=== PATIENT | female | born 1980 | race Caucasian/White ===

== ENCOUNTER 2017-11-20 21:10 | Emergency (ER) | payer OTHER ==
[~2017-11-20] VITALS: Ht 165.1 cm; Wt 70.6 kg
[2017-11-20 21:30] VITALS: TEMP 36.9; Ht 165.1 cm; Wt 70.6 kg
[2017-11-20] MEDS ORDERED: OXYCODONE/ACETAMINOPHEN 5-325 TAB PO STA (21:54)
[2017-11-20] MEDS ORDERED: IBUPROFEN 600 MG TAB PO STA (21:54)
[2017-11-20] MEDS ORDERED: HYDROCODONE/ACETAMIN 5/325MG TAB PO STA (21:57)
--- NOTE | 2017-11-20 22:34 | DIAGNOSTIC IMAGING REPORT ---
RIGHT SHOULDER 3 VIEWS CLINICAL HISTORY: Right shoulder pain. FINDINGS: 3 views of the right shoulder are obtained. No prior studies are available for comparison at the time of dictation. The skeletal structures are well mineralized. No fracture or dislocation is seen. The glenohumeral and acromioclavicular joints are within normal limits. The overlying soft tissues are unremarkable. The visualized right lung parenchyma appears clear. IMPRESSION: Unremarkable radiographic assessment of the right shoulder. Electronically signed by: Jose Teixeira M.D. 11/20/2017 10:33 PM Dictated Date/Time: 11/20/2017 10:32 PM
--- NOTE | 2017-11-20 22:35 | DIAGNOSTIC IMAGING REPORT ---
RIGHT ELBOW 3 VIEWS CLINICAL HISTORY: 3 views of the right elbow are obtained. No prior studies are available for comparison at the time of dictation. The examination is degraded by inability to properly position the patient. There is a nondistracted fracture of the radial head with associated joint effusion. No additional fracture is seen. There is no dislocation. The overlying soft tissues are within normal limits. IMPRESSION: Nondistracted radial head fracture with associated joint effusion. Electronically signed by: Jose Teixeira M.D. 11/20/2017 10:34 PM Dictated Date/Time: 11/20/2017 10:33 PM
--- NOTE | 2017-11-20 22:57 | EMERGENCY ROOM VISIT NOTE ---
ED Visit Note First contact with patient: 21:41 CHIEF COMPLAINT: Elbow pain HISTORY OF PRESENT ILLNESS: This patient is a 36-year-old female that presents the emergency department complaining of right arm pain after falling off of a hover board landing on her right arm. She is having severe pain in the elbow. The pain shoots up proximally to the shoulder. She denies any numbness or tingling. She denies any pain in the fingers or wrist. She has not injured this elbow before. She is right-handed. She has not taken anything for pain. REVIEW OF SYSTEMS: A 6 system review of systems was completed with positives and pertinent negatives listed in the HPI. ALLERGIES: Toradol, Percocet MEDICATIONS: Reviewed PMH: Fibromyalgia, neuropathy SOCIAL HISTORY: Smokes a half pack cigarettes per day. Occasional EtOH use PHYSICAL EXAM: Vital Signs: Reviewed Nurse's notes, vital signs stable. GENERAL : 36-year-old female, in no acute distress, well-developed, well-nourished. SKIN: The skin was without rashes, erythema, edema, warmth, or bruising. Capillary reflex less than 3 seconds. MUSCULOSKELETAL: The patient is holding their elbow in a flexed position. There is tenderness over the medial and lateral aspect of the elbow. No tenderness over the olecranon process. Tenderness proceeds into the mid forearm. The patient is able to give a thumbs up, make an OK sign, and a #3 with their fingers. The patient was also tender over the proximal humerus. Range of motion of the shoulder is limited. Radial pulse 2+. NEURO: Patient was alert and oriented to person place and time. Normal sensation EMERGENCY DEPARTMENT COURSE: I examined the patient. She was given [place] and ibuprofen for pain Imaging was performed and reviewed Elbow x-ray IMPRESSION: Nondistracted radial head fracture with associated joint effusion. Electronically signed by: Jose Teixeira M.D. 11/20/2017 10:34 PM Dictated Date/Time: 11/20/2017 10:33 PM The status of this report is Signed. Draft = Not yet reviewed or approved by Radiologist. Signed = Reviewed and approved by Radiologist. Shoulder x-ray Patient Name: SHEKHAR BRAVO Unit Number: [id number] Dictated: 11/20/172231 Transcribed: 11/20/172231 EV Printed Date/Time: [~ rep prt dt]/[~ rep prt tm] [~ rep ct labl] - [~ rep ct ivnm] [facility] [place] [address] Dictated: 11/20/172231 Transcribed: 11/20/172231 EV Printed Date/Time: [~ rep prt dt]/[~ rep prt tm] [~ rep ct labl] - [~ rep ct ivnm] IMPRESSION: Unremarkable radiographic assessment of the right shoulder. Electronically signed by: Jose Teixeira M.D. 11/20/2017 10:33 PM Dictated Date/Time: 11/20/2017 10:32 PM The status of this report is Signed. Draft = Not yet reviewed or approved by Radiologist. Signed = Reviewed and approved by Radiologist. <AttendingPhy></AttendingPhy> <FamilyPhy>No Doctor, Assigned</FamilyPhy> < PrimaryPhy>No Doctor, Assigned</PrimaryPhy> <UnitNumber>[id number]</UnitNumber> <VisitNumber>[id number]</VisitNumber> <PatientName>SHEKHAR BRAVO</ PatientName> <DateOfBirth>1980</DateOfBirth> <Location>[facility]</Location> < ServiceDate>11/20/17</ServiceDate> <MNE>ESINDI</MNE> <OrderingPhy>Patsy Lucas PA-C</OrderingPhy> <OrderingPhyMNE>f rep ord dr larsen</OrderingPhyMNE> < DictatingPhyMNE>f rep dict dr larsen</DictatingPhyMNE> <CCListMNE>f rep ct mne</ CCListMNE> <AdmittingPhyMNE>f pt admit dr larsen</AdmittingPhyMNE> <AttendingPhyMNE >f pt attend dr larsen</AttendingPhyMNE> <ConsultingPhyMNE>f pt consult dr larsen</ConsultingPhyMNE> <FamilyPhyMNE>f pt fam dr larsen</FamilyPhyMNE> <OtherPhyMNE>f pt other dr larsen</OtherPhyMNE> < PrimaryPhyMNE>f pt prim care dr larsen</PrimaryPhyMNE> <ReferringPhyMNE>f pt referring dr larsen</ReferringPhyMNE> Neurovascular status was rechecked and intact. He was given a home pack of [place], and discharged in good condition DIAGNOSIS: Proximal radius fracture DISCHARGE INSTRUCTIONS & TREATMENT: Please keep the splint in place. Call the orthopedic doctor in the morning for a follow-up appointment. Do not get the splint wet. Rest the arm in a sling. Ice for 20 minute intervals over the next 48 hours Ibuprofen 600 mg every 6 hours [place] 1-2 tabs every 4 hours for severe pain. Do not drink alcohol or drive while taking this medication. This may be taken with ibuprofen, but avoid Tylenol. Do not hesitate to return to the emergency department with any new, worsening or concerning symptoms; especially, discoloration or numbness into the hand or severe pain.
[2017-11-20] MEDS ORDERED: HYDR-5688 PO (22:59)
[2017-11-20] MEDS ORDERED: NORCO 5/325MG HOME PACK PO ONE (23:00)
[2017-11-20 23:07] VITALS: BP 112/75; PULSE 97; O2SAT 98
== END 2017-11-20 23:08 | disposition home or self-care (01) ==
LOC: C.EDB 21:12 → C.EDD 23:08
DX: S52.101A Unspecified fracture of upper end of right radius, initial encounter for closed fracture (principal); W17.89XA Other fall from one level to another, initial encounter; F17.200 Nicotine dependence, unspecified, uncomplicated; Z88.8 Allergy status to other drugs, medicaments and biological substances

== ENCOUNTER → 2017-11-27 | Outpatient (CLI) | payer OTHER ==
[~2017-11-27] MED LIST: HYDR-5688 PO
--- NOTE | 2017-11-27 14:03 | DIAGNOSTIC IMAGING REPORT ---
R FOREARM 2 VIEWS CLINICAL HISTORY: Right forearm pain. Elbow fracture. COMPARISON: Conventional radiograph the right elbow dated 11/20/2017 DISCUSSION: There is a radial head fracture. No additional fractures are visualized. There are no dislocations. IMPRESSION: Nondisplaced radial head fracture. No additional fractures identified. Electronically signed by: Hardeep Jones M.D. 11/27/2017 2:01 PM Dictated Date/Time: 11/27/2017 2:01 PM
--- NOTE | 2017-11-27 14:04 | DIAGNOSTIC IMAGING REPORT ---
R WRIST MIN 3 VIEWS ROUTINE CLINICAL HISTORY: RIGHT WRIST FX/RIGHT ARM PAIN pain COMPARISON: None. DISCUSSION: The bones and joint spaces appear intact. There is no evidence of fracture, dislocation or bony disease. There is no evidence for soft tissue swelling. IMPRESSION: Negative study. The above report was generated using voice recognition software. It may contain grammatical, syntax or spelling errors. Electronically signed by: Laurent Tolentino M.D. 11/27/2017 2:03 PM Dictated Date/Time: 11/27/2017 2:02 PM
== END | disposition home or self-care (01) ==
LOC: C.RDSM 18:33
PROVIDERS: ATTEND Family Medicine
DX: S59.911A Unspecified injury of right forearm, initial encounter (principal); X58.XXXA Exposure to other specified factors, initial encounter

== ENCOUNTER → 2018-01-08 | Outpatient (CLI) | payer OTHER ==
--- NOTE | 2018-01-08 11:58 | DIAGNOSTIC IMAGING REPORT ---
R ELBOW MIN 3 VIEWS CLINICAL HISTORY: Right elbow pain COMPARISON: 11/20/2017 DISCUSSION: There is a healing nondisplaced radial head/neck fracture. There are no dislocations. IMPRESSION: Interval development of a radial neck sclerosis, consistent with a healing radial head/neck fracture. Electronically signed by: Hardeep Jones M.D. 01/08/2018 11:57 AM Dictated Date/Time: 01/08/2018 11:56 AM
== END | disposition home or self-care (01) ==
LOC: C.RDSM 11:25
PROVIDERS: ATTEND Family Medicine
DX: M25.521 Pain in right elbow (principal); R93.7 Abnormal findings on diagnostic imaging of other parts of musculoskeletal system; Z88.6 Allergy status to analgesic agent

== ENCOUNTER 2018-07-15 23:09 | Emergency (ER) | payer OTHER ==
[~2018-07-15] VITALS: Ht 177.8 cm; Wt 66.6 kg
[2018-07-15 23:14] VITALS: TEMP 36.8; Ht 177.8 cm; Wt 66.6 kg
[2018-07-16 00:06] VITALS: BP 101/74; PULSE 85; O2SAT 100
--- NOTE | 2018-07-16 00:40 | EMERGENCY ROOM VISIT NOTE ---
History Report prepared by Emily: Yessenia Jarquin Under the Supervision of: Dr. Watson Christine M.D. First contact with patient: 23:19 Chief Complaint: KNEEPAIN Stated Complaint: RIGHT KNEE PAIN History of Present Illness The patient is a 37 year old female who presents to the Emergency Room with complaints of constant right knee pain for 5 weeks. The patient states that she has "hypermobile joint disorder" so her joints go out of place often. She states that she feels like her knee has been out of place for the past 5 weeks. She notes that the pain is worse with movement. She currently rates her pain as a 6/10 in severity. Patient ambulated into the room without difficulty. Source of History: patient Onset: 5 weeks Position: knee (right) Symptom Intensity: 6/10 Quality: other (dislocated) Timing: constant Modifying Factors (Worsening): movement Review of Systems See HPI for pertinent positives and negatives. A total of ten systems were reviewed and were otherwise negative. Past Medical & Surgical Medical Problems: (1) Hypermobile joints Family History No pertinent family history Social History Smoking Status: Never Smoker Marital Status: single Housing Status: lives alone Current/Historical Medications No Active Prescriptions or Reported Meds Allergies Coded Allergies: Ketorolac Tromethamine (Verified Allergy, Severe, HIVES, 07/15/18) Acetaminophen (Verified Adverse Reaction, Severe, NAUSEA & VOMITING, ) Oxycodone (Verified Adverse Reaction, Severe, NAUSEA & VOMITING, 07/15/18) Physical Exam Vital Signs Date Time Temp Pulse Resp B/P (MAP) Pulse Ox O2 Delivery O2 Flow Rate FiO2 07/16/18 00:06 85 18 101/74 100 Room Air 07/15/18 23:14 36.8 91 18 114/70 100 Room Air Physical Exam Physical Exam GENERAL: She is oriented to person, place, and time. She appears well- developed and well-nourished. She does not appear distressed. HENT: Exam performed. Head: Normocephalic and atraumatic. Right Ear: External ear normal. No mastoid tenderness. Left Ear: External ear normal. No mastoid tenderness. Mouth/Throat: The oropharynx is clear and moist. No trismus in the jaw. No dental abscesses or uvula swelling. No oropharyngeal exudate or tonsillar abscesses. EYES: Conjunctivae and EOM are normal. Pupils are equal, round, and reactive to light. Right eye exhibits no discharge. Left eye exhibits no discharge. No scleral icterus. NECK: Normal range of motion. Neck supple. No JVD present. No spinous process tenderness present. No carotid bruit present. No rigidity. No tracheal deviation and normal range of motion present. No Brudzinski's sign and no Kernig 's sign noted. CV: Normal rate, regular rhythm, normal heart sounds and intact distal pulses. There is no peripheral edema. Palpable radial pulses bue. PULM/CHEST: Effort normal and breath sounds normal. No respiratory distress. No stridor. She has no wheezes. She has no rales. Chest Wall: She exhibits no tenderness. ABD: The abdomen is soft. Bowel sounds are normal. She has no distension. No mass is present. There is no tenderness. There is no rebound, no guarding, no Gallegos's sign and no tenderness at McBurney's point. Rovsig negative MUSC/SKEL: Normal range of motion. There is no peripheral edema, tenderness or deformity. Right knee exam: Lockman, posterior drawer, valgus/varus stress negative of right knee. Palpable DP and PT pulses bilateral lower extremities. Compartments soft bilateral lower extremities. LYMPH: No cervical adenopathy. NEURO: She is alert and oriented to person, place, and time. She has normal strength. No cranial nerve deficit or sensory deficit. Coordination and gait normal. GCS eye subscore is 4. GCS verbal subscore is 5. GCS motor subscore is 6. Cerebellar tests wnl. SKIN: Skin is warm and dry. She is not diaphoretic. PSYCH: She has a normal mood and affect. Behavior is normal. Judgment and thought content normal. Medical Decision & Procedures ER Provider Diagnostic Interpretation: R KNEE X-RAY: The results were interpreted by pr. No acute fracture or dislocation. ED Course 2320: The patient was evaluated in room A12B. A complete history and physical exam was performed. Medical Decision At discharge the patient's vital signs were stable. Imaging was within normal limits. Patient was placed in a knee immobilizer and was instructed to follow up with her PCP. Medication Reconcilliation Current Medication List: was personally reviewed by me Blood Pressure Screening Patient's blood pressure: Normal blood pressure Blood pressure disposition: Did not require urgent referral Impression Primary Impression: Knee pain Scribe Attestation The scribe's documentation has been prepared under my direction and personally reviewed by me in its entirety. I confirm that the note above accurately reflects all work, treatment, procedures, and medical decision making performed by me. The chart was completed utilizing [employer] Speech voice recognition software. Grammatical errors, random word insertions, pronoun errors, and incomplete sentences are an occasional consequence of this system due to software limitations, ambient noise, and hardware issues. Any formal questions or concerns about the content, text, or information contained within the body of this dictation should be directly addressed to the physician for clarification. Departure Information Dispostion Home / Self-Care Prescriptions No Active Prescriptions or Reported Meds Referrals Brad Arriaga M.D. (PCP) Forms HOME CARE DOCUMENTATION FORM, IMPORTANT VISIT INFORMATION Patient Instructions My [facility] Problem Qualifiers Primary Impression: Knee pain Chronicity: unspecified Laterality: unspecified laterality Qualified Codes : M25.569 - Pain in unspecified knee
--- NOTE | 2018-07-16 06:49 | DIAGNOSTIC IMAGING REPORT ---
R KNEE 4 OR MORE VIEWS CLINICAL HISTORY: r knee pain pain COMPARISON: None. DISCUSSION: The bones and joint spaces appear intact. There is no evidence of fracture, dislocation or bony disease. There is no evidence for soft tissue swelling. IMPRESSION: Negative study. The above report was generated using voice recognition software. It may contain grammatical, syntax or spelling errors. Electronically signed by: Laurent Tolentino M.D. 07/16/2018 6:48 AM Dictated Date/Time: 07/16/2018 6:48 AM
== END 2018-07-16 00:05 | disposition home or self-care (01) ==
LOC: C.EDB 23:11 → C.EDA 07-16 00:05
DX: M25.561 Pain in right knee (principal); Z88.6 Allergy status to analgesic agent

== ENCOUNTER 2019-08-05 23:55 | Observation (INO) ==
--- OUTSIDE RECORDS SUMMARY | 2019-08-05 23:59 | External Medical Summary | Continuity of Care Document ---
:1980 Author Name Osmar Dunn Address Unavailable Unavailable , Care Team Providers Name Role Phone Mitchell Dunn Unavailable [email or web address] Active medical history not documented Allergies and Adverse Reactions Allergy history not documented Medications Medications not documented Procedures Procedures not documented Immunizations Immunizations not documented Plan of Treatment Planned Observations Planned Goals not documented Results No Known Results Results not documented Encounters Appointment; Jose Martin Medrano M.D. 26-Mar-2019 9:15 Encounter Diagnosis: Problem not documented
[2019-08-06] MEDS ORDERED: ONDANSETRON INJ 2 MG/ML 2 ML VIAL IV STA (00:40)
[2019-08-06] MEDS ORDERED: SODIUM CHLORIDE 0.9% 1000ML 1,000 ML IV SCH (00:45)
[2019-08-06] MEDS ORDERED: PANTOprazole 80 MG in DEXTROSE 5% 100 ML IV STA (00:50)
[2019-08-06 00:54] LABS: Basophils # (auto) 0.03 K/uL (0-0.2); Basophils % (auto) 0.4 %; Eosinophils # (auto) 0.06 K/uL (0-0.5); Eosinophils % (auto) 0.9 %; Hematocrit (blood only) 36.6 % (37-47); Hemoglobin 12.2 g/dL (12.0-16.0); Immature Granulocytes # (auto) 0.02 K/uL (0.00-0.02); Immature Granulocytes % (auto) 0.3 %; Lymphocytes # (auto) 1.98 K/uL (1.2-3.4); Lymphocytes % (auto) 28.7 %; Mean Corpuscular Hemoglobin 29.8 pg (25-34); Mean Corpuscular Hgb Conc 33.3 g/dL (32-36); Mean Corpuscular Volume 89.5 fL (80-100); Mean Platelet Volume 10.5 fL (7.4-10.4); Monocytes # (auto) 0.59 K/uL (0.11-0.59); Monocytes % (auto) 8.6 %; Neutrophils # (auto) 4.21 K/uL (1.4-6.5); Neutrophils % (auto) 61.1 %; Platelet Count 237 K/uL (130-400); RDW Standard Deviation 42.2 fL (36.4-46.3); Red Blood Count 4.09 M/uL (4.2-5.4); White Blood Count 6.89 K/uL (4.8-10.8)
[2019-08-06 01:11] LABS: Albumin Level 4.1 gm/dl (3.4-5.0); BUN Creatinine Ratio 14.9 (10-20); Creatinine Clr Calc Pharmacy 97.2 ml/min; Est GFR (African American) 102.2; Est GFR (Non-African American) 88.2; Potassium 3.9 mmol/L (3.5-5.1)
[2019-08-06 01:14] LABS: Albumin Globulin Ratio 1.4 (0.9-2); Total Protein 7.1 gm/dl (6.4-8.2)
--- NOTE | 2019-08-06 02:29 | History & Physical Report ---
Date of Service August 06, 2019 Assessment & Plan (1) Ingestion of toxic substance: 38 yo F PMH anxiety with unintentional ingestion of descaling alkaline chemical Ingestion of toxic substance -NPO -Pepcid IV (no protonix IV as not GI bleed per pharmacy) -Zofran for nausea -IV tylenol; not currently asking for more than tylenol due to h/o ex who was IVDU -Consulted GI for scope in AM -Follow up labs Anxiety -ativan prn; pt has at home but does not regularly use -Pt does report increased anxiety with current situation -Requested nicotine patch Code: full Dispo: med surg, obs admit DVTP: SCDs (2) Anxiety: History of Present Illness Chief Complaint: Unintentional ingestion of descaler Primary Care Provider: NO PCP Patient is a pleasant 38yo F PMH anxiety who presents after unintentional toxic ingestion. she notes that 3 days ago, she placed descaler into her keurig machine at work to clean it out. 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 She attempted to make a cup of coffee today at 1 pm, and noted that the milk she placed in her drink curdled (this was abnormal as it was a new container of milk). She made a second cup of coffee without milk, started drinking, and within 2 sips noted her mouth and throat started burning. She then remembered that she had placed the chemical in the machine. She drank water but did not want to present to the ER. It was in the next few hours that she progressively felt worse, with severe reflux symptoms, some epigastric pain and R-sided abdominal pain, and new blisters within her oropharynx. She also felt nauseated and dizzy. Of note, she was also stung by a wasp on her R hand shortly after ingesting the chemical so she is unsure which symptoms are related to which issue. In the ER, she was and remained hemodynamically stable. She was given zofran and IV protonix which did help with but did not resolve her GI symptoms. Poison control was contacted who recommended NPO, observation, and possible endoscopy. Dr. Alford was consulted and she will perform EGD on 08/06. Patient declined more than zofran, antacid, and tylenol for pain. H/o ex- who was an IVDU and she does not want any IV pain meds. Allergies Allergy/AdvReac Type Severity Reaction Status Date / Time ketorolac Allergy Severe HIVES Verified 08/06/19 00:21 acetaminophen AdvReac Severe NAUSEA & Verified 08/06/19 00:21 VOMITING oxycodone AdvReac Severe NAUSEA & Verified 08/06/19 00:21 VOMITING Home Medications Home Medications Medication Instructions Recorded Confirmed Type No Known Home Medications 03/09/19 08/06/19 History Past Med/Surg History Medical History Venous angioma of brain (Chronic) Family History Other No pertinent family history Social History Preferred Language: Sami Feels Safe at Home: Yes Smoking Status: Never smoker Review of Systems Review of Systems: All systems reviewed & are unremarkable except as noted in HPI & below Constitutional: + malaise; no fever Ear, Nose, Mouth, Throat: + pain with swallowing and + problem reported (ulcerating lesions) Gastrointestinal: + abdominal pain, + heartburn, + nausea, + pain with swallowing and + diarrhea/loose stools (one episode earlier today); no vomiting and no blood in stools Integumentary: + sores (R 3rd digit wasp sting) Neurologic: + dizziness and + headache(s) Psychiatric: + anxiety Physical Exam Constitutional: WD/WN, vitals as above cooperative; no acute distress Eyes: PERRL, conjunctivae normal, anicteric sclerae ENMT: Mouth: + oral mucosal abnormality (Ulcerating lesions: beneath tongue, bilat cheeks, L pharynx behind tonsil) and + tongue abnormality (ulcerating lesion on R lateral tongue) Respiratory: normal respiratory effort, lungs clear to auscultation Cardiovascular: RRR, no murmur, no edema Gastrointestinal (Abdomen): Inspection/Auscultation: abdomen normal to inspection; abdomen not distended Percussion/Palpation: + abdomen tender (mild epigastric tenderness) and abdomen soft; no guarding and abdomen not firm Musculoskeletal: no cyanosis or clubbing, extremities motor strength 5/5 Skin: no rashes, warm and dry Neurologic: PERRL, EOMI, accommodation nl, no face palsy, no dysarthria Psychiatric: A+Ox3, euthymic affect Affect: + anxious affect Results & Data Vital Signs (Past 12 Hours) Vital Signs Temp Pulse Pulse Resp BP BP Pulse Ox 08/06/19 02:07 68 16 107/69 98 08/06/19 01:17 68 20 108/67 100 08/05/19 23:58 97.7 F 77 18 133/76 100 Laboratory Results 08/06/19 08/06/19 Range/Units 00:44 00:44 WBC 6.89 (4.8-10.8) K/uL RBC 4.09 L (4.2-5.4) M/uL Hgb 12.2 (12.0-16.0) g/dL Hct 36.6 L (37-47) % MCV 89.5 (80-100) fL MCH 29.8 (25-34) pg MCHC 33.3 (32-36) g/dL RDW Std Deviation 42.2 (36.4-46.3) fL RDW Coeff of Ilda 13.0 (11.5-14.5) % Plt Count 237 (130-400) K/uL MPV 10.5 H (7.4-10.4) fL Immature Gran % (Auto) 0.3 % Neut % (Auto) 61.1 % Lymph % (Auto) 28.7 % Rapides % (Auto) 8.6 % Eos % (Auto) 0.9 % Baso % (Auto) 0.4 % Immature Gran # (Auto) 0.02 (0.00-0.02) K/uL Neut # (Auto) 4.21 (1.4-6.5) K/uL Lymph # (Auto) 1.98 (1.2-3.4) K/uL [place] # (Auto) 0.59 (0.11-0.59) K/uL Eos # (Auto) 0.06 (0-0.5) K/uL Baso # (Auto) 0.03 (0-0.2) K/uL Sodium 141 (136-145) mmol/L Potassium 3.9 (3.5-5.1) mmol/L Chloride 107 (98-107) mmol/L Carbon Dioxide 27 (21-32) mmol/L Anion Gap 7.0 (3-11) BUN 13 (7-18) mg/dl Creatinine 0.84 (0.6-1.2) mg/dl Est Cr Clr Drug Dosing 97.2 ml/min Est GFR ( Amer) 102.2 Est GFR (Non-Af Amer) 88.2 BUN/Creatinine Ratio 14.9 (10-20) Glucose 91 (70-99) mg/dl Calcium 9.0 (8.5-10.1) mg/dl Total Bilirubin 1.0 (0.2-1) mg/dl AST 13 L (15-37) U/L ALT 19 (12-78) U/L Alkaline Phosphatase 36 L (45-117) U/L Total Protein 7.1 (6.4-8.2) gm/dl Albumin 4.1 (3.4-5.0) gm/dl Globulin 3.0 (2.5-4.0) gm/dl Albumin/Globulin Ratio 1.4 (0.9-2) Lipase 156 (73-393) U/L Medications Administered Current Inpatient Medications Lorazepam (Ativan) 0.5 mg in 1 mls @ 1 mls/min IV Q4H PRN PRN Reason: Anxiety/Agitation Stop: 09/05/19 02:59 Last Admin: 08/06/19 03:23 Dose: 1 mls/min Documented by: Acetaminophen (Ofirmev) 1,000 mg in 100 mls @ 400 mls/hr IV Q8H PRN PRN Reason: Pain Stop: 09/05/19 02:59 Famotidine 20 mg/ Syringe 5 mls @ 2.5 mls/min IV Q12 DON Stop: 09/05/19 02:59 Last Admin: 08/06/19 03:23 Dose: 2.5 mls/min Documented by: Miscellaneous (Remove Nicoderm Patch) 1 ea N/A HS DON Stop: 09/05/19 20:59 Nicotine (Nicoderm Cq) 7 mg TD QAM [facility] Stop: 09/05/19 02:59 Last Admin: 08/06/19 03:22 Dose: 7 mg Documented by: Ondansetron HCl (Zofran) 4 mg IV Q6H PRN PRN Reason: Nausea Stop: 09/05/19 02:59 Last Admin: 08/06/19 03:10 Dose: 4 mg Documented by: Code Status & VTE Plan Code Status full VTE Prophylaxis Plan VTE Prophylaxis will be ordered: Yes Supervising Physician Co-Signing Physician Notes I personally interviewed and examined the patient. I agree with history of present illness and physical exam mentioned above, I also performed my own history taking and examination. Past medical history and review of system has been obtained by myself I reviewed all pertinent labs and studies Reviewed current medications I discussed and formulated of the assessment and plan mentioned above. Please refer to the Summary mentioned below. 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 use curing descaling solution to clean her machine and forgot to rinse the solution after that she made a cup of coffee and drank once above 8 and then throw it away because she thought the creamer was bad, made another cup of coffee and took 2 sips of it as per patient they were large sips and then started having burning sensation in her tongue and mucous membrane from inside presented to the hospital and was found to have multiple ulcers in her mouth patient was admitted, received Protonix IV, will give 1 Pepcid dose for rapid onset of action, called poison control who agreed that patient can rinse her mouth and drink a cup of water to dilute the solution, GI consulted and will possibly scope the patient soon. General Appearance: not in acute distress Eyes: normal Sclerae, extraocular muscle intact ENT: hearing grossly normal, multiple superficial ulcers and tongue and both cheeks and on the back of throat the pharynx. Neck: supple Respiratory/Chest: normal air entry bilateral ,no respiratory distress, no accessory muscle use Cardiovascular: regular rate, rhythm, no murmur Abdomen: non tender, soft, no masses very slight tenderness and epigastric area Extremities: no edema musculoskeletal: no significant swelling or inflammation in any joint Neurologic/Psychiatric: Awake alert oriented times place and person moves all extremities sensation intact cranial nerves II-12 appear to be intact Skin: normal color, warm/dry, no rash Lnyn Miller MD, [facility] Care Time/CCT Total # of Minutes Spent Total Time Spent with Patient: Total time spent is greater than 50% in coordination of care (as documented) at patient's floor/unit and/or counseling patient: Resident Activity Tracking Resident Involvement: Resident Care Provided Care Provided: Adult Hospital Medicine
[2019-08-06] MEDS ORDERED: ONDANSETRON INJ 2 MG/ML 2 ML VIAL IV PRN (03:00)
[2019-08-06] MEDS ORDERED: LORazepam 0.5 MG/1 ML VIAL IV PRN (03:00)
[2019-08-06] MEDS ORDERED: ACETAMINOPHEN 1,000 MG/100 ML VIAL IV PRN (03:00)
[2019-08-06] MEDS ORDERED: FAMOTIDINE 20 MG in SYRINGE 3 ML IV SCH ×2 (03:00→15:30)
[2019-08-06] MEDS: NICOTINE 7 MG/24 HR TDSY TD SCH ×2 (03:22→08:45)
--- NOTE | 2019-08-06 06:37 | Emergency Department Note ---
History of Present Illness General Chief complaint: Throat Pain Stated complaint: ACCIDENTALLY DRANK DESCALER/MOUTH BURNING Time Seen by Provider: 08/06/19 00:05 History of Present Illness Maximum Pain Intensity: 4 This is a 38-year-old female presenting to the emergency department for ev aluation after drinking a descaling product about 11 hours prior to arrival. The patient operates a [employer], and 3 days ago on 08/02/2019 she put a Keurig branded to descaling product into her Keurig coffeemaker. The patient states that the intention was to clean the men's leather dress belt maker, however she had very busy at work being that it was Monday the . The patient finished her day on Monday, went home for the , and went back to work today, a Monday. The patient went to make a cup of coffee, poured her creamer into the coffee, and when she drank it it tasted different. She looked into her coffee, and so that the creamer had curdled. She thought her creamer may have gone bad, and made a second cup of coffee, however this was black coffee. The patient drank 2 times from the black coffee, and then realized that she never cycled water through her men's leather dress belt maker. The patient is complaining of burning in her mouth and into her abdomen. She has been able to handle her own secretions and sip small amounts of fluid. She did try to eat a small amount of brisket, however this caused significant esophageal pain. She has not eaten since this time. The patient rates her overall discomfort a 4/10. 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 The patient is anxious about this. The patient considers herself otherwise usually healthy. She does not wish for any opioid- based pain medication. Home Medications Home Medications Medication Instructions Recorded Confirmed Type No Known Home Medications 03/09/19 08/06/19 History Allergies Allergy/AdvReac Type Severity Reaction Status Date / Time ketorolac Allergy Severe HIVES Verified 08/06/19 00:21 acetaminophen AdvReac Severe NAUSEA & Verified 08/06/19 00:21 VOMITING oxycodone AdvReac Severe NAUSEA & Verified 08/06/19 00:21 VOMITING Past Med/Surg History Medical History Anxiety Migraine Venous angioma of brain (Chronic) Surgical History History of adenoidectomy History of bilateral tubal ligation History of breast augmentation History of section History of tonsillectomy Family History Other No pertinent family history Social History Preferred Language: Kazakh Communication Ability: Effective Release Specialist Required: No Beliefs That Will Affect Care: None Current Living Situation: Family Other Information That Helps Us Care for You: No Feels Safe at Home: Yes Safety Concerns: Feels Safe At This Time Smoking Status: Current every day smoker Tobacco Type: e-cigarettes ; Do You Dip or Chew Tobacco: No ; Second Hand Exposure: No ; Tobacco Cessation Education Requested by Patient: No Hx Alcohol Use: No Hx Substance Use: No Review of Systems A total of 10 systems reviewed and were otherwise negative Physical Exam Vital Signs Vital Signs - 24 hr 08/05/19 23:58 08/06/19 01:17 08/06/19 02:07 Temperature 36.5 C Temperature Source Oral Sepsis Recent Fever Within 48 Hours No Sepsis Action Taken by Nursing No Action Required Pulse Rate 77 Pulse Rate [Finger] 68 68 Respiratory Rate 18 20 16 Respiratory Effort / Characteristics Non-Labored Non-Labored Spontaneous Non-Labored Spontaneous Respiratory Depth Normal Normal Normal Blood Pressure 133/76 Blood Pressure [Left Arm] 108/67 107/69 Blood Pressure Mean 95 Blood Pressure Mean [Left Arm] 80 81 Pulse Oximetry 100 100 98 Oxygen Delivery Method Room Air Room Air Room Air VITALS: Vitals are noted on the nurse's note and reviewed by myself. Vital sig ns stable. GENERAL: Well-developed, well-nourished, white female, who is moderately uncomfortable but overall cooperative. HEAD: Normocephalic atraumatic. MOUTH: Mucous membranes moist. Tonsils are not enlarged. 2 small blisters are noted underneath the tongue. There is additional shallow ulceration along the left upper gumline as well as a small ulcer just to the left side of the uvula. Tongue appears normal otherwise. Airway is patent. NECK: Supple without nuchal rigidity. No lymphadenopathy. No thyromegaly. Cervical spine is nontender. HEART: Regular rate and rhythm without murmurs gallops or rubs. LUNGS: Clear to auscultation bilaterally without wheezes, rales or rhonchi. No retractions or accessory muscle use. ABDOMEN: Positive normal bowel sounds x 4. Soft, nontender, without masses or organomegaly. No guarding or rebound tenderness. Course Administered Medications Lorazepam (Ativan) 0.5 mg in 1 mls @ 1 mls/min IV Q4H PRN PRN Reason: Anxiety/Agitation Stop: 09/05/19 02:59 Last Admin: 08/06/19 03:23 Dose: 1 mls/min Documented by: [id number] Famotidine 20 mg/ Syringe 5 mls @ 2.5 mls/min IV Q12 [facility] Stop: 09/05/19 02:59 Last Admin: 08/06/19 03:23 Dose: 2.5 mls/min Documented by: [id number] Nicotine (Nicoderm Cq) 7 mg TD QAM DON Stop: 09/05/19 02:59 Last Admin: 08/06/19 03:22 Dose: 7 mg Documented by: [id number] Ondansetron HCl (Zofran) 4 mg IV Q6H PRN PRN Reason: Nausea Stop: 09/05/19 02:59 Last Admin: 08/06/19 03:10 Dose: 4 mg Documented by: [id number] Discontinued Medications Sodium Chloride (Nss 1000ml) 1,000 mls @ 999 mls/hr IV .Q1H1M DON Stop: 08/06/19 01:45 Last Infusion: 08/06/19 01:56 Dose: 0 mls/hr Documented by: [id number] Admin: 08/06/19 00:50 Dose: 999 mls/hr Documented by: [id number] Pantoprazole Sodium 80 mg/ (Dextrose) 120 mls @ 480 mls/hr IV NOW STA Stop: 08/06/19 01:04 Last Infusion: 08/06/19 01:18 Dose: 0 mls/hr Documented by: [id number] Admin: 08/06/19 00:59 Dose: 480 mls/hr Documented by: [id number] Ondansetron HCl (Zofran) 4 mg IV NOW STA Stop: 08/06/19 00:41 Last Admin: 08/06/19 00:50 Dose: 4 mg Documented by: [id number] Medical Decision Making Differential Diagnosis Differential diagnosis includes, but is not limited to: Ingestion of toxic substance, infection, esophageal rupture, peritonitis, and others Laboratory Data Result diagrams: 08/06/19 00:44 08/06/19 00:44 Lab Results 08/06/19 08/06/19 Range/Units 00:44 00:44 WBC 6.89 (4.8-10.8) K/uL RBC 4.09 L (4.2-5.4) M/uL Hgb 12.2 (12.0-16.0) g/dL Hct 36.6 L (37-47) % MCV 89.5 (80-100) fL MCH 29.8 (25-34) pg MCHC 33.3 (32-36) g/dL RDW Std Deviation 42.2 (36.4-46.3) fL RDW Coeff of Ilda 13.0 (11.5-14.5) % Plt Count 237 (130-400) K/uL MPV 10.5 H (7.4-10.4) fL Immature Gran % (Auto) 0.3 % Neut % (Auto) 61.1 % Lymph % (Auto) 28.7 % Hayes % (Auto) 8.6 % Eos % (Auto) 0.9 % Baso % (Auto) 0.4 % Immature Gran # (Auto) 0.02 (0.00-0.02) K/uL Neut # (Auto) 4.21 (1.4-6.5) K/uL Lymph # (Auto) 1.98 (1.2-3.4) K/uL Hayes # (Auto) 0.59 (0.11-0.59) K/uL Eos # (Auto) 0.06 (0-0.5) K/uL Baso # (Auto) 0.03 (0-0.2) K/uL Sodium 141 (136-145) mmol/L Potassium 3.9 (3.5-5.1) mmol/L Chloride 107 (98-107) mmol/L Carbon Dioxide 27 (21-32) mmol/L Anion Gap 7.0 (3-11) BUN 13 (7-18) mg/dl Creatinine 0.84 (0.6-1.2) mg/dl Est Cr Clr Drug Dosing 97.2 ml/min Est GFR ( Amer) 102.2 Est GFR (Non-Af Amer) 88.2 BUN/Creatinine Ratio 14.9 (10-20) Glucose 91 (70-99) mg/dl Calcium 9.0 (8.5-10.1) mg/dl Total Bilirubin 1.0 (0.2-1) mg/dl AST 13 L (15-37) U/L ALT 19 (12-78) U/L Alkaline Phosphatase 36 L (45-117) U/L Total Protein 7.1 (6.4-8.2) gm/dl Albumin 4.1 (3.4-5.0) gm/dl Globulin 3.0 (2.5-4.0) gm/dl Albumin/Globulin Ratio 1.4 (0.9-2) Lipase 156 (73-393) U/L MDM Narrative Physical exam and history were performed. Nursing notes, EMR, and Medication List were personally reviewed. Patient appears to have drank a descaling product to clean her men's leather dress belt maker approximately 11 hours prior to arrival. The patient is without suicidal or homicidal ideation. This does seem to be an accidental ingestion. The patient was seen immediately on presentation and does have findings within the oropharynx. The case was discussed with my attending physician, Dr. Rajput, who remained closely involved in caring decision-making. The patient was independently evaluated by Dr. Rajput. IV access was established and labs were obtained. The patient was made n.p.o. and hydrated with normal saline. She was given Zofran and Protonix through the IV. Due to her ingestion [facility] was contacted. Poison control indicated that the substance that was ingested was likely alkaline with a pH between 10 and 11. They do recommend conservative support and consideration of endoscopy through GI. Dr. Rajput and I did speak with GI, Dr Huynh. Because the patient appears overall well without obvious peritonitis or evidence of perforation on exam, Dr. Huynh will take the patient to the OR for endoscopy in 4 to 5 hours. We did speak with the hospitalist who will admit the patient overnight. Please see their dictation for further patient course, plan, and disposition. The chart was completed utilizing [employer] Voice Recognition Software. Grammatical errors, random word insertions, pronoun errors, and incomplete sentences are an occasional consequence of this system due to software limitations, ambient noise, and hardware issues. Any formal questions or concerns about the content, text, or information contained within the body of this dictation should be directly addressed to the provider for clarification. . Impression & Plan Ingestion of toxic substance Discharge Plan Visit Data *Final* Discharge Date/Time: 08/06/19 02:30 Chief Complaint: Throat Pain Stated Complaint: ACCIDENTALLY DRANK DESCALER/MOUTH BURNING ED Provider: Deborah Rajput ED Midlevel Provider: Musa Santos Discharge Problem: Ingestion of toxic substance Patient Disposition: Admitted As Inpatient Discharge Instructions Interventions: ED Discharge Assessment Last Done: 08/06/19 02:30
[2019-08-06 07:12] LABS: Basophils # (auto) 0.03 K/uL (0-0.2); Basophils % (auto) 0.5 %; Eosinophils % (auto) 1.5 %; Hematocrit (blood only) 32.8 % (37-47); Immature Granulocytes # (auto) 0.01 K/uL (0.00-0.02); Immature Granulocytes % (auto) 0.2 %; Lymphocytes # (auto) 2.72 K/uL (1.2-3.4); Mean Corpuscular Hemoglobin 30.3 pg (25-34); Mean Corpuscular Hgb Conc 33.5 g/dL (32-36); Mean Corpuscular Volume 90.4 fL (80-100); Mean Platelet Volume 10.5 fL (7.4-10.4); Monocytes # (auto) 0.61 K/uL (0.11-0.59); Monocytes % (auto) 9.2 %; Neutrophils # (auto) 3.16 K/uL (1.4-6.5); Neutrophils % (auto) 47.6 %; Platelet Count 209 K/uL (130-400); RDW Standard Deviation 43.5 fL (36.4-46.3); Red Blood Count 3.63 M/uL (4.2-5.4); White Blood Count 6.63 K/uL (4.8-10.8)
[2019-08-06 07:48] LABS: Albumin Level 3.4 gm/dl (3.4-5.0); BUN Creatinine Ratio 14.7 (10-20); Est GFR (African American) 117.2; Est GFR (Non-African American) 101.1; Potassium 3.4 mmol/L (3.5-5.1)
[2019-08-06 07:50] LABS: Albumin Globulin Ratio 1.3 (0.9-2); Bilirubin,Total 1.3 mg/dl (0.2-1); Globulin 2.6 gm/dl (2.5-4.0)
--- NOTE | 2019-08-06 09:21 | Gastrointestinal Consultation ---
Date of Consultation August 06, 2019 Assessment & Plan (1) Ingestion of toxic substance: Pt is a 38 y/o female who accidentally had ingested Keurig descaling agent, presented w burning pain sensation of mouth and esophagus. - Keep NPO - Plan for EGD eval today by Dr. Hicks - Protonix 40mg IV BID - GI will give further recs after EGD is performed Supervising Physician Co-Signing Physician Notes I saw and evaluated the patient. It appears that she had a toxic ingestion Monday afternoon and notes having continued chest discomfort. She notes that she also has mouth ulcerations and sores. She denies any difficulty swallowing today. Physical examination No obvious distress Oropharynx with several ulcerations noted Abdomen soft Impression: Patient with ingestion of a alkali solution used for cleaning her insulation blanket maker. Alkali tends to be more corrosive than acid and the patient will need careful monitoring. We are planning to do an upper endoscopy today for staging purposes. It is possible that the patient may need referral to a tertiary center for more expert evaluation. Recommendations Upper endoscopy today ENT consultation please History of Present Illness Reason for Consultation: Toxic ingestion Requesting Physician: Dr. Darrel Ni Attending Physician: Dr. Odette Hicks History of Present Illness Pt is a 38 y/o female who presented to ED yesterday w c/o mouth, esophageal burning, pain, blisters in mouth. She had placed Keurig descaling solution last Monday and forgot about it. Yesterday she placed creamer in same container as the descaler and it curdled. She next made a cup of coffee, and soon after drinking a few sips she noted burning in mouth, throat and down esophagus up to epigastric area. She has blisters forming inside her mouth, under tongue. She thus went to ED for evaluation. She is hemodynamically stable, labs reviewed - no leukocytosis, H/H w mild anemia, renal and liver functions unremarkable. Poison control contacted by admitting team last night and NPO status, observation and possible endoscopy. She vapes but denies ETOH, illicit drugs, NSAIDs on regular basis. Allergies Allergy/AdvReac Type Severity Reaction Status Date / Time ketorolac Allergy Severe HIVES Verified 08/06/19 00:21 acetaminophen AdvReac Severe NAUSEA & Verified 08/06/19 00:21 VOMITING oxycodone AdvReac Severe NAUSEA & Verified 08/06/19 00:21 VOMITING Home Medications Home Medications Medication Instructions Recorded Confirmed Type No Known Home Medications 03/09/19 08/06/19 History Patient History Medical History Anxiety Migraine Venous angioma of brain (Chronic) Surgical History History of adenoidectomy History of bilateral tubal ligation History of breast augmentation History of section History of tonsillectomy Family History Other No pertinent family history Social History Preferred Language: [place] Communication Ability: Effective Audit Mgr Required: No Beliefs That Will Affect Care: None Current Living Situation: Family Other Information That Helps Us Care for You: No Feels Safe at Home: Yes Safety Concerns: Feels Safe At This Time Smoking Status: Current every day smoker Tobacco Type: e-cigarettes ; Do You Dip or Chew Tobacco: No ; Second Hand Exposure: No ; Tobacco Cessation Education Requested by Patient: No Hx Alcohol Use: No Hx Substance Use: No Review of Systems Review of Systems: All systems reviewed & are unremarkable except as noted in HPI & below Physical Exam Constitutional: WD/WN, vitals as above well groomed, cooperative and comfortable Eyes: PERRL, conjunctivae normal, anicteric sclerae ENMT: blister under tongue, dry lips. soft/hard palate w/o much erythema Respiratory: normal respiratory effort, lungs clear to auscultation Cardiovascular: RRR, no murmur, no edema Gastrointestinal (Abdomen): normal bowel sounds, soft, nontender, no hepatosplenomegaly Skin: no rashes, warm and dry no jaundice Neurologic: Motor/Sensory: no asterixis Psychiatric: A+Ox3, euthymic affect Lymphatic: no lymphedema Results & Data Vital Signs (Past 12 Hours) Vital Signs Temp Pulse Pulse Resp BP BP Pulse Ox 08/06/19 06:56 36.7 C 63 16 88/51 L 97 08/06/19 03:30 36.7 C 71 16 123/80 94 08/06/19 02:07 68 16 107/69 98 08/06/19 01:17 68 20 108/67 100 08/05/19 23:58 36.5 C 77 18 133/76 100
[2019-08-06] MEDS ORDERED: PANTOprazole 40 MG in SYRINGE 0 ML IV SCH (09:45)
[2019-08-06] MEDS ORDERED: ePHEDrine sulfate 50 MG/ML AMP IV PRN (11:11)
[2019-08-06] MEDS ORDERED: ATROPINE SULFATE 0.1 MG/ML 10ML SYR IV PRN (11:11)
--- NOTE | 2019-08-06 11:11 | Anesthesiology Consultation ---
Date of Service August 06, 2019 Assessment & Plan Chart Review Chart Review: Acceptable Risk for Surgery and Patient NOT seen in Pre Admission Testing Consults Requested none ASA ASA2 Proposed Anesthesia Anesthesia Type: MAC Risk / Benefits Reviewed With: PT / POA / Parent / Guardian, Accepts Plan and Informed Consent Obtained History Surgery Operation Date: 08/06/19 10:55 Proposed Procedures p Esophagogastroduodenoscopy Dr Kurt Hicks Height/Weight Height: 5 ft 10 in Weight: 68.5 kg Allergies Allergy/AdvReac Type Severity Reaction Status Date / Time ketorolac Allergy Severe HIVES Verified 08/06/19 00:21 acetaminophen AdvReac Severe NAUSEA & Verified 08/06/19 00:21 VOMITING oxycodone AdvReac Severe NAUSEA & Verified 08/06/19 00:21 VOMITING Medications Home Medications Medication Instructions Recorded Confirmed Last Taken No Known Home Medications 03/09/19 08/06/19 Unknown Active Medications Generic Name Dose Route Start Last Admin Trade Name Freq PRN Reason Stop Dose Admin Lorazepam 0.5 mg in 1 mls @ 1 mls/min 08/06/19 03:00 08/06/19 03:23 Ativan IV 09/05/19 02:59 1 mls/min Q4H PRN Administration Anxiety/Agitation Pantoprazole Sodium 40 mg/ 10 mls @ 5 mls/min 08/06/19 09:45 08/06/19 09:55 Syringe IV 09/05/19 08:59 5 mls/min BID@0900,2100 DON Administration Nicotine 7 mg 08/06/19 03:00 08/06/19 08:45 Nicoderm Cq TD 09/05/19 02:59 Not Given QAM DON Ondansetron HCl 4 mg 08/06/19 03:00 08/06/19 03:10 Zofran IV 09/05/19 02:59 4 mg Q6H PRN Administration Nausea NPO Date Last Intake of Fluids: 08/05/19 Time Last Intake of Fluids: 23:59 Date Last Intake of Solids: 08/05/19 Time Last Intake of Solids: 23:59 Past Medical History Medical History Anxiety Migraine Venous angioma of brain (Chronic) Exercise / Class Metabolic Activity II 4-5 Yardwork/Stairs/Walk up hill Past Family History Family History Other No pertinent family history Past Surgical History Surgical History History of adenoidectomy History of bilateral tubal ligation History of breast augmentation History of section History of tonsillectomy Past Anesthesia History No Hx of Anesthesia Complications and No Family Hx of Anesthesia Complications History of PONV No Hx of PONV and No Hx of Motion Sickness Social History Smoking Status: Current every day smoker tobacco type: e-cigarettes Do You Dip or Chew Tobacco: No Hx Alcohol Use: No Hx Substance Use: No substance use type: does not use Physical Exam Vital Signs Last Vital Signs Temp 36.7 C 08/06/19 06:56 Pulse 63 08/06/19 06:56 Resp 16 08/06/19 06:56 BP 92/60 L 08/06/19 10:50 Pulse Ox 97 08/06/19 06:56 Constitutional not obese ENMT Mouth: no dentition abnormality Thyromental Distance: > or= 3.5 Finger Breadths Mallampati Class: II Neck normal visual inspection and trachea midline; neck extension not limited Respiratory normal respiratory effort Auscultation: lungs clear to auscultation bilaterally Cardiovascular Rate/Rhythm: regular rate and regular rhythm Heart Sounds: no murmur Musculoskeletal Spine: normal cervical ROM Neurologic moves all extremities Motor/Sensory: no sensory deficit Psychiatric Orientation: alert and oriented x 3 Testing Laboratory Results 08/06/19 06:49 08/06/19 06:49
[2019-08-06] MEDS ORDERED: LIDOCAINE HCL 2% 2 ML VIAL/AMP(20MG/ML) INFIL ONE (11:25)
[2019-08-06] MEDS ORDERED: PROPOFOL IV EMULSION 10 MG/ML 20 ML VIAL IV ONE (11:25)
--- NOTE | 2019-08-06 11:46 | Communication Note ---
Date of Service: August 06, 2019 The patient had an upper endoscopy due to an alkaline ingestion. Findings 2 small superficial esophageal erosions Recommendations Protonix 40 mg/day Carafate slurry 2 times daily for [address] of the chest and abdomen to ensure patient does not have inflammatory changes in the esophagus stomach or small intestine
--- NOTE | 2019-08-06 11:52 | GI REPORT ---
Patient Name: Rolanda Juarez Procedure Date: 08/06/2019 11:27 AM Date of : 1980 Admit Type: Inpatient Age: 38 Gender: Female Attending MD: Odette Hicks DO Procedure: Upper GI endoscopy Providers: Odette Hicks DO Referring MD: Darrel Ni Md Indications: Endoscopy to assess acute esophageal injury after caustic ingestion Medicines: Monitored Anesthesia Care Complications: No immediate complications. Estimated blood loss: Minimal. Estimated Blood Loss: Estimated blood loss was minimal. Procedure: Pre-Anesthesia Assessment: - Prior to the procedure, a History and Physical was performed, and patient medications, allergies and sensitivities were reviewed. The patient's tolerance of previous anesthesia was reviewed. - The risks and benefits of the procedure and the sedation options and risks were discussed with the patient. All questions were answered and informed consent was obtained. - The risks and benefits of the procedure and the sedation options and risks were discussed with the patient. All questions were answered and informed consent was obtained. - Patient identification and proposed procedure were verified prior to the procedure by the physician, the nurse and the dehydration plant operator. The procedure was verified in the procedure room. - Pre-procedure physical examination revealed no contraindications to sedation. - ASA Grade Assessment: III - A patient with severe systemic disease. - After reviewing the risks and benefits, the patient was deemed in satisfactory condition to undergo the procedure. - The anesthesia plan was to use monitored anesthesia care (MAC). - Immediately prior to administration of medications, the patient was re-assessed for adequacy to receive sedatives. - The heart rate, respiratory rate, oxygen saturations, blood pressure, adequacy of pulmonary ventilation, and response to care were monitored throughout the procedure. - The physical status of the patient was re-assessed after the procedure. After obtaining informed consent, the endoscope was passed under direct vision. Throughout the procedure, the patient's blood pressure, pulse, and oxygen saturations were monitored continuously. The Endoscope was introduced through the mouth, and advanced to the third part of duodenum. The upper GI endoscopy was accomplished without difficulty. The patient tolerated the procedure well. Findings: The upper third of the esophagus, lower third of the esophagus and gastroesophageal junction were normal. Two small 5 mm non-bleeding erosions were found in the middle third of the esophagus. The entire examined stomach was normal. The examined duodenum was normal. Impression: - Normal upper third of esophagus, lower third of esophagus and gastroesophageal junction. - Two non-bleeding erosions in the middle third of the esophagus. This represents low-grade changes from the alkali ingestion. - Normal stomach. - Normal examined duodenum. - No specimens collected. Recommendation: - [facility] to [facility] for [facility] care. - Use Protonix (pantoprazole) 40 mg PO daily for 6 weeks. - Use sucralfate suspension 1 gram PO BID for 6 weeks. - ENT consultation (patient may need nasopharyngoscopy) - CT of the Chest and abdomen to evaluate for inflammatory changes Odette Hicks D.O. Odette Hicks, 08/06/2019 11:51:53 AM This report has been signed electronically. Note Initiated On: 08/06/2019 11:27 AM Number of Addenda: 0 I attest to the content of the Intraoperative Record and orders documented therein, exceptions below {[id number]}
--- NOTE | 2019-08-06 11:57 | Anesthesiology Progress Note ---
Date of Service August 06, 2019 Anesthesia Post Procedure Vital Signs Vital Signs: Temp Pulse Pulse Resp BP BP Pulse Ox 08/06/19 11:54 60 16 90/56 L 100 08/06/19 11:15 36.7 C 68 20 103/60 98 08/06/19 10:50 92/60 L 08/06/19 06:56 36.7 C 63 16 88/51 L 97 08/06/19 03:30 36.7 C 71 16 123/80 94 08/06/19 02:07 68 16 107/69 98 08/06/19 01:17 68 20 108/67 100 08/05/19 23:58 36.5 C 77 18 133/76 100 Pain Intensity Generalized: Pain Intensity: 4 Transfer of Care Handoff Completed per policy Notes Mental Status: alert / awake / arousable Patient Amnestic to Procedure: Yes Nausea / Vomiting: adequately controlled Pain: adequately controlled Airway Patency, RR, SpO2: stable & adequate BP & HR: stable & adequate Hydration State: stable & adequate Anesthetic Complications: no major complications apparent
--- NOTE | 2019-08-06 14:10 | CT Scan Report ---
CT abdomen wo con CT DOSE: CLINICAL HISTORY: Abdominal pain. Accidental ingestion of an alkaline chemical. TECHNIQUE: Unenhanced images were obtained through the upper abdomen. A dose lowering technique was utilized adhering to the principles of ALARA. COMPARISON STUDY: None. FINDINGS: There are bilateral breast implants. The visualized portions of lung bases reveal a 5 mm pleural-base d left lower lobe on a nodule. There is mild basilar atelectasis. No hepatic masses are visualized on this noncontrast study. No gallbladder masses are evident. No splenic masses are visualized. No pancreatic abnormalities are visualized. No adrenal masses are visualized. There is no hydronephrosis. No renal calculi are visualized. There is incomplete rotation the right k idney. There is no evidence for abdominal aortic dilatation. There is no evidence of pathologic upper abdominal lymphadenopathy. There is no pathologic bowel dilatation. There is no pneumatosis. No extraluminal gas is visualized. IMPRESSION: 1. No acute findings within the upper abdomen, given the limitations of a study performed without int ravenous or oral contrast. Electronically signed by: Hardeep Jones M.D. 08/06/2019 2:08 PM
--- NOTE | 2019-08-06 14:21 | CT Scan Report ---
CT chest wo con CT DOSE: 620.72 mGycm HISTORY: Acidic ingestion; any injury? TECHNIQUE: Multiaxial CT images of the chest were performed without contrast. A dose lowering techni que was utilized adhering to the principles of ALARA. COMPARISON: None. FINDINGS: The lungs are clear. The mediastinal vascular structures are within normal limits. No media stinal or hilar lymphadenopathy. No pleural effusion or pneumothorax. Limited views of the upper abdo men demonstrate a normal liver and spleen. No mediastinal hematoma or fluid collections. No pneumomed iastinum. Mild emphysema. Normal esophagus. Bilateral breast implants. IMPRESSION: No acute process. Electronically signed by: Kvng Humphreys M.D. 08/06/2019 2:19 PM
--- NOTE | 2019-08-06 15:23 | Discharge Summary ---
Date of Service August 06, 2019 Admission HPI Per Admitting Provider Patient is a pleasant 38yo F [facility] anxiety who presents after unintentional toxic ingestion. she notes that 3 days ago, she placed descaler into her keurig machine at work to clean it out. 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 She attempted to make a cup of coffee today at 1 pm, and noted that the milk she placed in her drink curdled (this was abnormal as it was a new container of milk). She made a second cup of coffee without milk, started drinking, and within 2 sips noted her mouth and throat started burning. She then remembered that she had placed the chemical in the machine. She drank water but did not want to present to the ER. It was in the next few hours that she progressively felt worse, with severe reflux symptoms, some epigastric pain and R-sided abdominal pain, and new blisters within her oropharynx. She also felt nauseated and dizzy. Of note, she was also stung by a wasp on her R hand shortly after ingesting the chemical so she is unsure which symptoms are related to which issue. In the ER, she was and remained hemodynamically stable. She was given zofran and IV protonix which did help with but did not resolve her GI symptoms. Poison control was contacted who recommended NPO, observation, and possible endoscopy. Dr. Alford was consulted and she will perform EGD on 08/06. Patient declined more than zofran, antacid, and tylenol for pain. H/o ex- who was an IVDU and she does not want any IV pain meds. Principal Diagnosis Accidental descaler ingestion Discharge Exam Constitutional WD/WN, vitals as above well groomed, cooperative and comfortable; no acute distress and not obese Eyes PERRL, conjunctivae normal, anicteric sclerae ENMT Mouth: + oral mucosal abnormality (Ulcerating lesions: beneath tongue, bilat cheeks, L pharynx behind tonsil) and + tongue abnormality (ulcerating lesion on R lateral tongue); no dentition abnormality Mallampati Class: II Neck normal visual inspection and trachea midline; neck extension not limited Respiratory normal respiratory effort, lungs clear to auscultation normal respiratory effort Auscultation: lungs clear to auscultation bilaterally Cardiovascular RRR, no murmur, no edema Rate/Rhythm: regular rate and regular rhythm Heart Sounds: no murmur Gastrointestinal (Abdomen) normal bowel sounds, soft, nontender, no hepatosplenomegaly Inspection/Auscultation: abdomen normal to inspection; abdomen not distended Percussion/Palpation: + abdomen tender (mild epigastric tenderness) and abdomen soft; no guarding and abdomen not firm Musculoskeletal no cyanosis or clubbing, extremities motor strength 5/5 Spine: normal cervical ROM Skin no rashes, warm and dry no jaundice Neurologic PERRL, EOMI, accommodation nl, no face palsy, no dysarthria moves all extremities Motor/Sensory: no asterixis and no sensory deficit Psychiatric A+Ox3, euthymic affect Orientation: alert and oriented x 3 Affect: + anxious affect Lymphatic no lymphedema Discharge Data Allergies Allergy/AdvReac Type Severity Reaction Status Date / Time ketorolac Allergy Severe HIVES Verified 08/06/19 00:21 oxycodone AdvReac Severe NAUSEA & Verified 08/06/19 00:21 VOMITING Consultations 08/06/19 01:11 Consult Gastroenterology Stat ED Decision to Admit Stat 08/06/19 03:00 Consult Gastroenterology Routine Procedures Performed Operation Date: 08/06/19 10:55 Actual Procedures p Esophagogastroduodenoscopy - Odette Hicks Ordered Studies 08/06/19 13:07 CT abdomen wo con Routine CT chest wo con Routine Hospital Course (1) Ingestion of toxic substance: Pt is a 38 y/o female who accidentally had ingested Keurig descaling agent, presented w burning pain sensation of mouth and esophagus. - EGD on 08/06 showed mild erosion in the mid-esophagus. Recommended by GI to take PPI PO BID and carafate BID x 6 weeks. Will follow up with GI outpatient. - CT chest and abdomen showed no other inflammation or injury. - She was asked to stay for ENT evaluation, but declined as she wanted to get home to her kids. She was advised to follow up with ENT as outpatient as soon as she was able. - Follow up with GI in 2-3 weeks for possible repeat EGD. Total Time Total Time Spent Total Time Spent (In Minutes): 25 Total Time Includes: Examination of the Patient and Communication With Other Providers Discharge Plan Discharge Items Patient Disposition: Home - Self-Care Reason For Visit: TOXIC INGESTION Discharge Diagnosis: Ingestion of coffee machine descaler Activity: Resume your previous activity Non-emergency contact: Primary Care Provider and Spring Encaser Call non-emergency contact if: your symptoms worsen and your pain is not controlled Follow-up/Referrals: Garth Rhodes MD, [facility] [Physician] - (Please see Dr. Rhodes or another ENT doctor as soon as able.) Odette Hicks [Physician] - (Please see Dr. Hicks in his office in 2-3 weeks.) PCP,NO [Primary Care Provider] - Diet: Regular Addtl Attending Provider Instructions: You were admitted after accidentally drinking some coffee descaler that caused chemical guthrie in your mouth and throat. We did an EGD which showed some injury to the middle of your esophagus. We are giving you two medications to help the esophagus heal. Please take them for [address] Hicks in the clinic in 2-4 weeks for follow up. The GI doctors encouraged you to see an ENT (ears, nose, throat) doctor, but we could not arrange it prior to you wanting to leave the hospital. Please follow up with them as an outpatient to be sure no injury occurred in the nasal passages. Please return to the hospital with worsening pain, trouble swallowing, or any other concerning symptoms. Pending Studies at Discharge: Yes (CT abdomen & chest) Stand-Alone Forms: My [facility] Medications and DC Order Prescriptions: New sucralfate 100 mg/mL Suspension 10 ml PO BID Qty: 420 RF: 1 pantoprazole 40 mg Tablet,Delayed Release (Dr/Ec) 40 mg PO BID Qty: 60 RF: 0 No Action No Known Home Medications RF: 0 Discharge Orders: Discharge Order (Routine); Ordered 08/06/19 Ordered By: Darrel Murcia/Other Patient Handouts: Pantoprazole Sodium Gastro-resistant tablet, Sucralfate Oral suspension Admission Data Admit Date/Time: 08/06/19 02:10 Attending Provider: Darrel Ni Admit Provider: Diya Yoon Primary Care Provider: PCP,NO Other Providers: Josephine Alford ; Darrel Ni Other Interventions: Discharge Summary Assessment (RN) Last Done: 08/06/19 12:15 DC Date/Time DO NOT enter until pt leaves facility: 08/06/19 14:42
[2019-08-06] MEDS ORDERED: SUCRALFATE 1 GM/10 ML UDC PO SCH (21:00)
[2019-08-06] MEDS ORDERED: PANTOprazole 40 MG TAB PO SCH (21:00)
== END 2019-08-06 14:42 | disposition home or self-care (01) ==
LOC: 3W 23:55 → ED 23:55 → SUATTDRO 08-06 02:10 → 3W 08-06 02:30